=== PATIENT | female | born 1990 | race Caucasian/White ===

== ENCOUNTER 2019-12-11 00:25 | Emergency (ER) | payer MEDICAID ==
[~2019-12-11] VITALS: Ht 162.6 cm; Wt 72.6 kg
[2019-12-11 00:37] VITALS: BP 111/69
--- NOTE | 2019-12-11 00:37 | NUR ---
AMBULATED TO ER BED 1
[2019-12-11] MEDS: IBUPROFEN 600 MG TAB PO ONE (01:02)
--- NOTE | 2019-12-11 01:24 | NUR ---
PT HAS ABSCESS TO R BUTTOCKS, AREA HAS BEEN DRAINING, NO ACTIVE DRAINGING AT THIS TIME. PT ALSO C/O SHARP PAIN TO RIGHT CHEST. NO RADIATION OF PAIN, NO SOB. PT AFEBRLE. BED IN LOWEST POSITION AND SIDERAIL UP X 1. NKA NO HX
[2019-12-11 01:35] VITALS: BP 111/69
--- NOTE | 2019-12-11 01:36 | NUR ---
Patient discharged with v/s stable. Written and verbal after care instructions given and explained. Patient alert, oriented and verbalized understanding of instructions. Ambulatory with steady gait. All questions addressed prior to discharge. ID band removed. Patient advised to follow up with PMD. Rx of BACTRIM DS, KEFLEX, IBUPROFEN, AND HIBICLENS given. Patient educated on indication of medication including possible reaction and side effects. Opportunity to ask questions provided and answered.
== END 2019-12-11 01:35 | disposition home or self-care (01) ==
LOC: MED 00:25
DX: L02.91 Cutaneous abscess, unspecified (principal); Z48.00 Encounter for change or removal of nonsurgical wound dressing
CPT/HCPCS: 99283

== ENCOUNTER 2022-05-22 08:02 | Emergency (ER) | payer MEDICAID ==
[~2022-05-22] VITALS: Ht 162.6 cm; Wt 77.6 kg
[2022-05-22 08:04] VITALS: BP 156/83
--- NOTE | 2022-05-22 08:14 | NUR ---
PT AMB TO BED 7.
--- NOTE | 2022-05-22 08:25 | NUR ---
32 y/o female bib self with c/o pain from s/p fall yesterday. Per patient, she fell from approximatly 10 ft. Patient reports + hitting head. Denies any LOC. Patient reports pain to right side of head, right wrist, left hip and left lee. Patient took Ibuprofen prior to arrival for pain. Medical History: Denies NKDA
--- NOTE | 2022-05-22 08:27 | NUR ---
Dr. Rubio evaluating patient at bedside.
[2022-05-22] MEDS ORDERED: IBUPROFEN 600 MG TAB PO ONE (08:35)
--- NOTE | 2022-05-22 08:42 | NUR ---
X-Ray at bedside.
[2022-05-22] MEDS ORDERED: IBUP-2213 PO (09:07)
--- NOTE | 2022-05-22 09:37 | NUR ---
Patient discharged with v/s stable. Written and verbal after care instructions given. Patient alert, oriented and verbalized understanding of instructions. Ambulatory with steady gait. All questions addressed prior to discharge. ID band removed. Patient advised to follow up with PMD. Rx of Ibuprofen given. Opportunity to ask questions provided and answered.
--- NOTE | 2022-05-22 09:38 | NUR ---
The patient's care was reviewed and supervised by Leti Saleh, RN, RN.
== END 2022-05-22 09:37 | disposition home or self-care (01) ==
LOC: MED 08:02
DX: S63.591A Other specified sprain of right wrist, initial encounter (principal); R51.9 Headache, unspecified; Z79.899 Other long term (current) drug therapy; W18.30XA Fall on same level, unspecified, initial encounter; Y93.89 Activity, other specified; Y92.89 Other specified places as the place of occurrence of the external cause; Y99.8 Other external cause status
CPT/HCPCS: 73090; 73110; 99284; Q0092

== ENCOUNTER 2023-06-07 03:10 | Emergency (ER) | payer MEDICAID ==
[~2023-06-07] VITALS: Ht 162.6 cm; Wt 81.6 kg
[~2023-06-07 03:10] MED LIST: IBUP-2213 PO
[2023-06-07 03:32] VITALS: BP 137/80; PULSE 99; RESP 18; TEMP 97.9; O2SAT 100
[2023-06-07 04:29] LABS: FLU B ANTIGEN NEGATIVE (NEGATIVE)
[2023-06-07 04:32] LABS: FLU A ANTIGEN POSITIVE (NEGATIVE)
[2023-06-07] MEDS: guaiFENesin DM 200/20 MG-10 ML 10 ML UDC PO ONE (04:58)
[2023-06-07 05:26] LABS: ALBUMIN 3.2 g/dL (3.4-5.0); ANION GAP 12.4 (8-16); BASOPHILS # (AUTO) 0.1 K/uL (0.00-0.22); BASOPHILS % (AUTO) 0.6 % (0.0-2.0); CALCIUM 9.1 mg/dL (8.5-10.1); CARBON DIOXIDE 26.3 mmol/L (21-32); CREATININE 0.7 mg/dL (0.6-1.3); EOSINOPHILS # (AUTO) 0.1 K/uL (0-0.4); EOSINOPHILS % (AUTO) 1.3 % (0.0-4.0); HEMATOCRIT 33.4 % (36-48); HEMOGLOBIN 11.3 g/dL (12.0-16.0); LYMPHOCYTES % (AUTO) 19.4 % (20.5-51.1); MEAN CORPUSCULAR HEMOGLOBIN 29 pg (27-31); MEAN CORPUSCULAR HGB CONC 34 g/dL (33-37); MEAN CORPUSCULAR VOLUME 85.1 fL (80-94); MONOCYTES # (AUTO) 0.9 K/uL (0.8-1.0); MONOCYTES % (AUTO) 8.7 % (1.7-9.3); NEUTROPHILS # (AUTO) 7.3 K/uL (1.8-7.7); PLATELET COUNT (AUTO) 413 K/uL (140-450); POTASSIUM 3.7 mmol/L (3.5-5.1); RED BLOOD CELL COUNT(AUTO) 3.93 MIL/uL (4.20-5.40); RED CELL DISTRIBUTION WIDTH 13.8 % (11.6-13.7); TOTAL BILIRUBIN 0.1 mg/dL (0.0-1.0); TOTAL PROTEIN, SERUM 7.8 g/dL (6.4-8.2); WHITE BLOOD COUNT (AUTO) 10.5 K/uL (4.8-10.8)
[2023-06-07 07:10] VITALS: BP 114/78; PULSE 95; RESP 18; TEMP 97.9; O2SAT 100
[2023-06-07] MEDS ORDERED: PROM118S5 PO (07:33)
[2023-06-07] MEDS ORDERED: AMOX500C25 PO (07:33)
[2023-06-07] MEDS ORDERED: IBUP-2213 PO (07:59)
== END 2023-06-07 07:56 | disposition home or self-care (01) ==
LOC: MED 03:10
DX: O98.511 Other viral diseases complicating pregnancy, first trimester (principal); J10.1 Influenza due to other identified influenza virus with other respiratory manifestations; Z3A.00 Weeks of gestation of pregnancy not specified; Z20.822 Contact with and (suspected) exposure to COVID-19; Z79.1 Long term (current) use of non-steroidal anti-inflammatories (NSAID)
CPT/HCPCS: 36415; 71045; 71250; 80053; 81025; 85025; 87081; 99284